=== PATIENT | male | born 1990 | race Two or more races ===

== ENCOUNTER 2018-02-23 17:53 | Emergency (ER) | payer MEDICAID ==
[~2018-02-23] VITALS: Ht 177.8 cm; Wt 79.4 kg
[2018-02-23 17:53] VITALS: BP 115/59
--- NOTE | 2018-02-23 18:15 | Emergency Room Report ---
History of Present Illness General Chief Complaint: Alcohol Intoxication Source: EMS (Juliette Blue) Present Illness HPI 27-year-old male presents to the emergency department brought by EMS for altered mental status. Patient is unresponsive with only mild response to painful stimuli. EMS suspects EtOH. History of present illness and ROS are markedly limited due to patient mental status. (Juliette Blue.Teresa) Allergies: Coded Allergies: UNABLE TO ASSESS (Unverified , 02/23/18) Patient History Past Medical History: see triage record Past Surgical History: unable to obtain Pertinent Family History: unable to obtain (Juliette Blue) Nursing Documentation-[facility] Past Medical History: No History, Except For History Of Psychiatric Problem: Yes - ALCOHOL ABUSE (Juliette Blue) Review of Systems All Other Systems: limited (Juliette Blue.Teresa) Physical Exam Vital Signs Date Time Temp Pulse Resp B/P (MAP) Pulse Ox O2 Delivery O2 Flow Rate FiO2 02/23/18 17:43 108 16 115/59 98 Room Air Sp02 EP Interpretation: reviewed, normal General Appearance: no apparent distress, GCS 15 - GCS of 9, non-toxic, lethargic Head: normocephalic, atraumatic Eyes: bilateral eye normal inspection, bilateral eye PERRL ENT: TMs + canals normal, moist mucus membranes, other - no evidence of oral trauma Neck: other - will re-assess neck ROM and tendernes when pt. is more alert. Respiratory: lungs clear, normal breath sounds, speaking full sentences Cardiovascular #1: regular rate, rhythm, no edema, normal capillary refill Gastrointestinal: normal bowel sounds, non tender, soft Musculoskeletal: other - HERIBERTO Neurologic: responsive - to painful and very loud stimuli, other - no nystagmus. equal pupils, gag reflex is present. Skin: normal color, no rash, warm/dry, well hydrated, diaphoresis - mildly diaphoretic initially. (Juleitte Blue) Medical Decision Making PA Attestation Dr. Ch is my supervising Physician whom patient management has been discussed with. Dr. Ch is my supervising Physician whom patient management has been discussed with. (Juliette Blue P.Teresa) Diagnostic Impression: Primary Impression: Altered mental status Qualified Codes: R41.82 - Altered mental status, unspecified ER Course 27-year-old male presents to the emergency department brought by EMS for altered mental status. Patient is unresponsive with only mild response to painful stimuli. EMS suspects EtOH. History of present illness and ROS are markedly limited due to patient mental status. Ddx considered but are not limited to ETOH, Trauma, Syncope, Seizure/postictal, OD, intracranial pathology, Serotonin Syndrome. just to name a few. Vital signs: are WNL, pt. is afebrile , will repeat frequently. reviewed EMS accucheck of 108 H&PE : -patient is not alert and oriented, no pinpoint pupils, PERRLA, no nystagmus. . He is only responsive to significant painful stimuli. Patient is able to maintain a patent airway on his own, no obvious evidence of trauma. No evidence of vomiting to suspect aspiration. Patient is well kept/groomed and appears to be relatively healthy. No obvious signs of IV drug use. -Patient is diaphoretic during physical exam. ORDERS: -CT Head Non-Contrast---- Pt. became active and cheese grader states he wont hold still for CT. RN stated that pt. walked out of room beligerant and threw a pillow at her. security was called to bedside. I re-examined pt. he is moving, still lethargic. I do not want to sedate this pt. further will cancel CT for now and continue observance and re-assess if it is still needed. -CBC, CMP, Salicylates and Acetaminophen levels: unremarkable -Serum ETOH: 401 - UDS: Positive for THC -UA: unremarkable ED INTERVENTIONS: -1 Liter NS Bolus-- pt. self d/c'd -Observance while he detoxifies. Pt. was allowed to sleep/rest. PT. became awake and alert x 3 DISCHARGE: At this time pt. is stable for d/c to home. Will provide printed patient care instructions, and any necessary prescriptions. Care plan and follow up instructions have been discussed with the patient prior to discharge. Labs Test 02/23/18 18:30 White Blood Count 7.4 K/UL (4.8-10.8) Red Blood Count 4.82 M/UL (4.70-6.10) Hemoglobin 15.3 G/DL (14.2-18.0) Hematocrit 46.0 % (42.0-52.0) Mean Corpuscular Volume 95 FL (80-99) Mean Corpuscular Hemoglobin 31.8 PG (27.0-31.0) Mean Corpuscular Hemoglobin Concent 33.3 G/DL (32.0-36.0) Red Cell Distribution Width 12.7 % (11.6-14.8) Platelet Count 204 K/UL (150-450) Mean Platelet Volume 5.8 FL (6.5-10.1) Neutrophils (%) (Auto) 58.7 % (45.0-75.0) Lymphocytes (%) (Auto) 34.2 % (20.0-45.0) Monocytes (%) (Auto) 5.1 % (1.0-10.0) Eosinophils (%) (Auto) 0.8 % (0.0-3.0) Basophils (%) (Auto) 1.2 % (0.0-2.0) Sodium Level 145 MMOL/L (136-145) Potassium Level 3.5 MMOL/L (3.5-5.1) Chloride Level 108 MMOL/L (98-107) Carbon Dioxide Level 27 MMOL/L (21-32) Anion Gap 11 mmol/L (5-15) Blood Urea Nitrogen 7 mg/dL (7-18) Creatinine 0.8 MG/DL (0.55-1.30) Estimat Glomerular Filtration Rate > 60 mL/min (>60) Glucose Level 102 MG/DL (74-106) Calcium Level 7.5 MG/DL (8.5-10.1) Total Bilirubin 0.1 MG/DL (0.2-1.0) Aspartate Amino Transf (AST/SGOT) 28 U/L (15-37) Alanine Aminotransferase (ALT/SGPT) 25 U/L (12-78) Alkaline Phosphatase 52 U/L (46-116) Total Protein 5.9 G/DL (6.4-8.2) Albumin 3.4 G/DL (3.4-5.0) Globulin 2.5 g/dL Albumin/Globulin Ratio 1.4 (1.0-2.7) Salicylates Level 1.2 ug/mL (2.8-20) Urine Opiates Screen Negative (NEGATIVE) Acetaminophen Level 3 MCG/ML (10-30) Urine Barbiturates Screen Negative (NEGATIVE) Phencyclidine (PCP) Screen Negative (NEGATIVE) Urine Amphetamines Screen Negative (NEGATIVE) Urine Benzodiazepines Screen Negative (NEGATIVE) Urine Cocaine Screen Negative (NEGATIVE) Urine Marijuana (THC) Screen Positive (NEGATIVE) Serum Alcohol 401 mg/dL (Juliette Blue) ER Course Patient with alcohol intoxication. He was sent out to me for disposition. Patient slept for several hours and then got up and walked to the bathroom without any difficulty. He said he doesn't want to stay and promptly left. He was walking without difficulty. No slurred speech. Clinically he is sober to leave. (ANIRUDH LINDSEY M.D.) Last Vital Signs Date Time Temp Pulse Resp B/P (MAP) Pulse Ox O2 Delivery O2 Flow Rate FiO2 02/23/18 17:43 108 16 115/59 98 Room Air (Juliette Blue) Status: improved (ANIRUDH LINDSEY M.D.) Disposition: HOME, SELF-CARE Condition: Stable Signed Out To: Dr. Lindsey (Juliette Blue) Patient Instructions: Alcohol Intoxication, [id number] Juliette Blue Feb 23, 2018 18:15 ANIRUDH LINDSEY M.D. Feb 23, 2018 23:37
[2018-02-23 18:51] LABS: BASOPHILS % (AUTO) 1.2 % (0.0-2.0); EOSINOPHILS % (AUTO) 0.8 % (0.0-3.0); HEMOGLOBIN 15.3 G/DL (14.2-18.0); LYMPHOCYTES % (AUTO) 34.2 % (20.0-45.0); MEAN CORPUSCULAR VOLUME 95 FL (80-99); MONOCYTES % (AUTO) 5.1 % (1.0-10.0); NEUTROPHILS % (AUTO) 58.7 % (45.0-75.0); PLATELET COUNT 204 K/UL (150-450); RED BLOOD COUNT 4.82 M/UL (4.70-6.10); RED CELL DISTRIBUTION WIDTH 12.7 % (11.6-14.8); WHITE BLOOD COUNT 7.4 K/UL (4.8-10.8)
[2018-02-23 19:08] LABS: ANION GAP 11 mmol/L (5-15); BLOOD UREA NITROGEN 7 mg/dL (7-18); CALCIUM 7.5 MG/DL (8.5-10.1); CARBON DIOXIDE 27 MMOL/L (21-32); CHLORIDE 108 MMOL/L (98-107); CREATININE 0.8 MG/DL (0.55-1.30); POTASSIUM 3.5 MMOL/L (3.5-5.1); SODIUM 145 MMOL/L (136-145)
[2018-02-23 19:12] LABS: ALANINE AMINOTRANSFERASE 25 U/L (12-78); ALBUMIN 3.4 G/DL (3.4-5.0); ALBUMIN/GLOBULIN RATIO 1.4 (1.0-2.7); ALKALINE PHOSPHATASE 52 U/L (46-116); ASPARTATE AMINO TRANSFERASE 28 U/L (15-37); BILIRUBIN,TOTAL 0.1 MG/DL (0.2-1.0)
[2018-02-23 23:25] VITALS: BP 115/59
== END 2018-02-23 23:35 | disposition home or self-care (01) ==
LOC: EDBD 17:53 → EMR 18:29
DX: R41.82 Altered mental status, unspecified (principal); F10.129 Alcohol abuse with intoxication, unspecified
CPT/HCPCS: 36415; 80053; 80307; 80329; 85025; 99284